=== PATIENT | female | born 1990 | race Caucasian/White ===

== ENCOUNTER → 2017-02-22 | Outpatient (REF) | payer BC | LOC: M LAB REF 17:08 | PROVIDERS: ATTEND Advanced Practice Midwife | DX: Z34.81 Encounter for supervision of other normal pregnancy, first trimester (principal); Z36 Encounter for antenatal screening of mother; Z3A.00 Weeks of gestation of pregnancy not specified ==

== ENCOUNTER 2017-05-27 10:46 | Emergency (ER) | payer BC ==
[~2017-05-27] VITALS: Ht 157.5 cm; Wt 52.7 kg
[2017-05-27 11:21] VITALS: BP 104/63
[2017-05-27 11:31] LABS: BASO # 0.1 10^3/uL (0.0-0.2); BASO % 0.5 % (0.0-1.0); EOS # 0.1 10^3/uL (0.0-0.50); LYMPH % 18.1 % (24.0-44.0); MEAN CORPUSCULAR HEMOGLOBIN 32.3 pg (27.0-33.0); MEAN CORPUSCULAR HGB CONC 34.7 g/dl (32.0-36.5); MEAN CORPUSCULAR VOLUME 93.2 fl (80.0-96.0); MONO # 0.5 10^3/uL (0.0-0.8); MONO % 4.8 % (0.0-5.0); NEUTROPHILS # 8.1 10^3/uL (1.8-7.7); NEUTROPHILS % 74.6 % (36.0-66.0); PLATELET COUNT, AUTOMATED 324 10^3/uL (150-450); RED CELL DISTRIBUTION WIDTH 12.7 % (11.5-14.5); WHITE BLOOD COUNT 10.9 10^3/uL (4.0-10.0)
[2017-05-27 11:45] LABS: INR 1.02
[2017-05-27 12:02] LABS: ANION GAP 10 MEQ/L (8-16); BLOOD UREA NITROGEN 8 MG/DL (7-18); CALCIUM LEVEL 8.3 MG/DL (8.5-10.1); CARBON DIOXIDE LEVEL 24 MEQ/L (21-32); CHLORIDE LEVEL 106 MEQ/L (98-107); CREATININE FOR GFR 0.58 MG/DL (0.55-1.02); FREE T4 0.88 NG/DL (0.76-1.46); GLOMERULAR FILTRATION RATE > 60.0 (>60); GLUCOSE, FASTING 76 MG/DL (70-105); MAGNESIUM LEVEL 1.7 MG/DL (1.8-2.4); POTASSIUM SERUM 3.8 MEQ/L (3.5-5.1); SODIUM LEVEL 140 MEQ/L (136-145)
[2017-05-27] MEDS ORDERED: NS 1,000 ML IV ONE (12:15)
[2017-05-27] MEDS ORDERED: PREN1TAB11 PO (12:51)
[2017-05-27 13:10] LABS: METHADONE URINE NEGATIVE (NEGATIVE)
--- NOTE | 2017-05-27 18:32 | ECGEPIP ---
Stationary ECG Study [facility] - ED Test Date: 2017-05-27 Pat Name: MICHA BROWN Department: Room: - Gender: F Senior [employer]: charlie : 1990 Requested By: Jorge Ozuna Order Number: [id number] Reading MD: Lars Thornton Measurements Intervals [place] Rate: 71 P: 29 [place]: 176 QRS: 59 QRSD: 85 T: 16 QT: 382 QTc: 417 Interpretive Statements SINUS RHYTHM WITH SINUS ARRHYTHMIA BENIGN EARLY REPOLARIZATION POSSIBLE PRIOR INFERIOR INFARCT NO PRIORS FOR COMPARISON Electronically Signed On 05-27-2017 18:32:17 EST by Lars Thornton
== END 2017-05-27 12:00 | disposition admitted as inpatient to this hospital (09) ==
LOC: EDBD 10:46 → M ED 10:46
DX: O99.89 Other specified diseases and conditions complicating pregnancy, childbirth and the puerperium (principal); R55 Syncope and collapse; Z3A.24 24 weeks gestation of pregnancy; Z87.891 Personal history of nicotine dependence
CPT/HCPCS: 80048; 80307; 81001; 82550; 82553; 83735; 84439; 84443; 85025; 85610; 85730; 87086; 93005; 93041; 94760; 99285; G0480

== ENCOUNTER 2017-05-27 12:34 | Outpatient (CLI) | payer BC ==
[~2017-05-27] VITALS: Ht 158.8 cm; Wt 55.0 kg
[2017-05-27 12:45] VITALS: BP 98/53
[2017-05-27] MEDS ORDERED: PREN1TAB11 PO (12:51)
--- NOTE | 2017-05-27 13:22 | IPNPDOC ---
Text Note Date of Service The patient was seen on 05/27/17. NOTE 26 yo at 23 5/7 weeks gestation arrived to the ER with a syncope episode. Transferred to L and D for monitoring. Patient states she passed out at work. Reports eating cheerios and applesauce for breakfast over four hours ago. O:VSS Labs- WBC 10.9. H&H 10.9/31.4. Plt 324. Glucose 76, Sodium 140, Potassium 3.8 FHR:140, moderate variability, + accels, + variables. Episodic tracing. CTX: none A: 23 5/7 weeks gestation. Category 1 tracing. Not in labor. P: Regular diet order. May be discharged home. Encouraged to keep appt in office. Educated on more frequent meals with protein 2-3 hours and increase fluids. VS,Fishbone, I+O VS, Fishbone, I+O Vital Signs Date Time Temp Pulse Resp B/P (MAP) Pulse Ox O2 Delivery O2 Flow Rate FiO2 05/27/17 12:45 98.6 81 18 98/53 (68) Mana Tomas CNM May 27, 2017 13:17
[2017-05-27 13:53] VITALS: BP 88/54
[2017-05-27 14:38] VITALS: BP 97/56
== END 2017-05-27 14:50 | disposition home or self-care (01) ==
LOC: M LDO 12:34
PROVIDERS: ATTEND Advanced Practice Midwife
DX: O26.892 Other specified pregnancy related conditions, second trimester (principal); Z3A.23 23 weeks gestation of pregnancy; R55 Syncope and collapse

== ENCOUNTER → 2017-07-04 | Outpatient (CLI) | payer BC ==
[2017-07-04 14:22] LABS: HEMATOCRIT 31.4 % (36.0-47.0); HEMOGLOBIN 10.6 g/dl (12.0-16.0); MEAN CORPUSCULAR HEMOGLOBIN 31.9 pg (27.0-33.0); MEAN CORPUSCULAR HGB CONC 33.8 g/dl (32.0-36.5); MEAN CORPUSCULAR VOLUME 94.6 fl (80.0-96.0); PLATELET COUNT, AUTOMATED 345 10^3/uL (150-450); RED BLOOD COUNT 3.32 10^6/uL (4.00-5.40); RED CELL DISTRIBUTION WIDTH 12.1 % (11.5-14.5); WHITE BLOOD COUNT 9.6 10^3/uL (4.0-10.0)
[2017-07-04 14:50] LABS: GLUCOSE CHALLENGE TEST 1 HOUR 115 MG/DL (LESS THAN 140)
[2017-07-05 12:11] LABS: HEPATITIS C VIRUS ABY INDEX 0.1 INDEX (<0.8)
== END ==
LOC: M SMT 08:34
DX: Z34.82 Encounter for supervision of other normal pregnancy, second trimester (principal)
CPT/HCPCS: 82950

== ENCOUNTER → 2017-08-15 | Outpatient (REF) | payer BC | LOC: M LAB REF 17:06 | DX: Z34.83 Encounter for supervision of other normal pregnancy, third trimester (principal); Z36.85 Encounter for antenatal screening for Streptococcus B | CPT/HCPCS: 87081 ==

== ENCOUNTER 2017-09-11 05:15 | Inpatient (IN) | payer BC ==
[2017-09-11 06:08] LABS: HEMOGLOBIN 11.3 g/dl (12.0-16.0); MEAN CORPUSCULAR HEMOGLOBIN 30.6 pg (27.0-33.0); MEAN CORPUSCULAR HGB CONC 34.2 g/dl (32.0-36.5); MEAN CORPUSCULAR VOLUME 89.4 fl (80.0-96.0); PLATELET COUNT, AUTOMATED 303 10^3/uL (150-450); RED BLOOD COUNT 3.69 10^6/uL (4.00-5.40); RED CELL DISTRIBUTION WIDTH 13.2 % (11.5-14.5)
[2017-09-11] MEDS: LR 800 ML IV (06:29)
[2017-09-11] MEDS: LR 1,000 ML IV ×3 (06:29→16:12)
[2017-09-11] MEDS: BICITRA 30ML SOLN UDC PO (07:16)
[2017-09-11] MEDS ORDERED: MORPHINE PRES-FREE INJ 10 MG/10 ML VIAL (J2274) As Ordered (07:19)
[2017-09-11] MEDS ORDERED: OXYTOCIN INJ 10 UNITS/ML VIAL (J2590) As Ordered ×2 (07:19)
[2017-09-11] MEDS ORDERED: ONDANSETRON 4MG/2ML VIAL (J2405) IV ×3 (07:44→09:30)
[2017-09-11] MEDS ORDERED: NALOXONE INJ 0.4 MG/1 ML VIAL (J2310) IV ×2 (07:44)
[2017-09-11] MEDS ORDERED: NALBUPHINE HCL 10 MG/ML AMP (J2300) IV ×2 (07:44→09:30)
[2017-09-11] MEDS ORDERED: METOCLOPRAMIDE INJ 10MG/2ML VIAL (J2765) IV (07:44)
[2017-09-11] MEDS ORDERED: PHENYLephrine HCL 500 MCG/5 ML (100MCG/ML) SYRINGE (J2370) As Ordered (07:47)
[2017-09-11] MEDS ORDERED: MEASLES,MUMPS,RUBELLA VACCINE INJ (MMR-II) (90707) SC (08:45)
[2017-09-11] MEDS ORDERED: DOCUSATE SODIUM 100 MG CAP PO (08:45)
[2017-09-11] MEDS ORDERED: RHOGAM 300 MCG (1500 IU) INJ (J2790) IM (08:45)
[2017-09-11] MEDS: PRENATAL VITAMINS CHEWABLE TABLET PO (09:00)
[2017-09-11] MEDS ORDERED: fentaNYL 100 MCG/2 ML INJECTION (J3010) IV (09:30)
[2017-09-11] MEDS ORDERED: KETOROLAC 30 MG/ML VIAL (J1885) IV (09:30)
[2017-09-11] MEDS: KETOROLAC 30 MG/ML VIAL (J1885) IV ×3 (10:41→22:35)
[2017-09-11] MEDS: PERCOCET 5MG/325MG TAB PO ×2 (17:09→22:35)
[2017-09-12] MEDS: KETOROLAC 30 MG/ML VIAL (J1885) IV (05:18)
[2017-09-12 06:37] LABS: HEMATOCRIT 32.6 % (36.0-47.0); HEMOGLOBIN 10.9 g/dl (12.0-16.0); MEAN CORPUSCULAR HEMOGLOBIN 30.6 pg (27.0-33.0); MEAN CORPUSCULAR HGB CONC 33.4 g/dl (32.0-36.5); MEAN CORPUSCULAR VOLUME 91.6 fl (80.0-96.0); PLATELET COUNT, AUTOMATED 273 10^3/uL (150-450); RED BLOOD COUNT 3.56 10^6/uL (4.00-5.40); RED CELL DISTRIBUTION WIDTH 13.5 % (11.5-14.5); WHITE BLOOD COUNT 9.8 10^3/uL (4.0-10.0)
[2017-09-12] MEDS: PRENATAL VITAMINS CHEWABLE TABLET PO (08:13)
[2017-09-12] MEDS: ADACEL/BOOSTRIX VACCINE (DIPHTH/PERTUSS/ACELL/TETANUS)0.5ML SYR (90715) IM (08:14)
[2017-09-12] MEDS: PERCOCET 5MG/325MG TAB PO ×3 (10:07→20:01)
[2017-09-12] MEDS: IBUPROFEN 800 MG TAB PO ×2 (13:21→20:01)
[2017-09-13] MEDS: PERCOCET 5MG/325MG TAB PO ×3 (01:26→10:47)
[2017-09-13] MEDS: IBUPROFEN 800 MG TAB PO (05:00)
[2017-09-13] MEDS: PRENATAL VITAMINS CHEWABLE TABLET PO (08:38)
== END 2017-09-13 11:30 | disposition home or self-care (01) | DRG 540 ==
LOC: M LDI 05:15 → M OBS 10:13
PROVIDERS: Specialist
PROC: 10D00Z1 Extraction of Products of Conception, Low, Open Approach (ICD-10-PCS; principal; 2017-09-11 07:30)
DX: O34.211 Maternal care for low transverse scar from previous cesarean delivery (principal); Z3A.39 39 weeks gestation of pregnancy; Z37.0 Single live birth